=== PATIENT | male | born 1980 | race Caucasian/White ===

== ENCOUNTER 2018-06-04 15:28 | Inpatient (IN) | payer SELFPAY ==
[~2018-06-04] VITALS: Ht 165.1 cm; Wt 62.6 kg
[2018-06-04 00:30] VITALS: BP 122/64
[2018-06-04] MEDS ORDERED: SODIUM CHLORIDE 0.9% 1,000 ML IV ONE (16:13)
[2018-06-04 16:41] LABS: BASOPHILS % 0.5 % (0.0-2.0); EOSINOPHILS % 0.2 % (0.0-5.0); HEMATOCRIT. 42.7 % (42.0-52.0); HEMOGLOBIN. 14.6 g/dL (14.0-18.0); LYMPHOCYTES % 22.5 % (20.0-50.0); MEAN CORPUSCULAR HEMOGLOBIN 26.5 pg (28.0-32.0); MEAN CORPUSCULAR VOLUME 77.6 fL (80.0-94.0); MEAN PLATELET VOLUME 9.2 fl (7.4-10.4); MONOCYTES % 14.6 % (2.0-8.0); NEUTROPHILS % 62.2 % (40.0-76.0); PLATELET 102 x1000/uL (130-400); RED BLOOD CELL COUNT 5.51 mill/uL (4.7-6.1); RED CELL DISTRIBUTION WIDTH 14.2 % (11.6-14.6)
[2018-06-04 16:43] LABS: CHLORIDE 71 mEq/L (98-107)
[2018-06-04 17:14] LABS: ETHANOL BLOOD 446 mg/dL
[2018-06-04] MEDS ORDERED: POTASSIUM CHLORIDE 20MEQ TABLET SR PO ONE (17:45)
[2018-06-04] MEDS ORDERED: KCL 20MEQ/100ML PREMIX 100 ML IV ONE (17:45)
[2018-06-04] MEDS ORDERED: ONDANSETRON HCL 4MG/2ML INJ IV ONE ×2 (18:00→21:00)
[2018-06-04] MEDS ORDERED: METOCLOPRAMIDE HCL 10MG/2ML VIAL IV ONE (21:15)
[2018-06-04] MEDS ORDERED: MAGNESIUM/ALUMINUM HYDROXIDE/SIMETHICONE 30ML UDC PO PRN (22:30)
[2018-06-04] MEDS ORDERED: IPRATROPIUM/ALBUTEROL 0.5-3(2.5)MG/3ML NEB INH PRN (22:30)
[2018-06-04] MEDS ORDERED: CLONIDINE 0.1MG TABLET PO PRN (22:30)
[2018-06-04] MEDS ORDERED: ONDANSETRON HCL 4MG/2ML INJ IV PRN (22:30)
[2018-06-04] MEDS ORDERED: HYDROCODONE/ACETAMINOPHEN 5/325MG TABLET PO PRN (22:30)
[2018-06-04] MEDS ORDERED: GUAIFENESIN 200MG/10ML SUGAR FREE UDC PO PRN (22:30)
[2018-06-04] MEDS ORDERED: DOCUSATE SODIUM 100MG CAPSULE PO PRN (22:30)
[2018-06-04] MEDS ORDERED: LORAZEPAM 2MG/ML CPJ IV PRN (22:30)
[2018-06-04 23:12] LABS: HEPATITIS B SURFACE ANTIGEN NEGATIVE
[2018-06-04 23:42] LABS: HEPATITIS A AB IGM NEGATIVE (NEGATIVE)
[2018-06-05 00:30] VITALS: BP 122/64
[2018-06-05] MEDS ORDERED: MVI, ADULT NO.1 10 ML, FOLIC ACID 1 MG, THIAMINE HCL 100 MG in SODIUM CHLORIDE 0.9% 1,0... IV SCH ×4 (01:00)
[2018-06-05] MEDS: SODIUM CHLORIDE 0.9% 1,000 ML IV SCH ×2 (02:39→15:08)
[2018-06-05 04:00] VITALS: BP 109/68
[2018-06-05] MEDS: CHLORDIAZEPOXIDE 25MG CAPSULE PO SCH ×3 (05:24→21:48)
[2018-06-05 06:41] LABS: BASOPHILS % 0.8 % (0.0-2.0); EOSINOPHILS % 2.3 % (0.0-5.0); HEMATOCRIT. 34.4 % (42.0-52.0); HEMOGLOBIN. 11.6 g/dL (14.0-18.0); LYMPHOCYTES % 18.2 % (20.0-50.0); MEAN CORPUSCULAR HEMOGLOBIN 26.3 pg (28.0-32.0); MEAN CORPUSCULAR VOLUME 78.1 fL (80.0-94.0); MEAN PLATELET VOLUME 9.7 fl (7.4-10.4); MONOCYTES % 12.7 % (2.0-8.0); PLATELET 87 x1000/uL (130-400); RED BLOOD CELL COUNT 4.41 mill/uL (4.7-6.1); RED CELL DISTRIBUTION WIDTH 14.5 % (11.6-14.6)
[2018-06-05 08:00] VITALS: BP 116/61
[2018-06-05 09:17] LABS: CHLORIDE 85 mEq/L (98-107)
[2018-06-05 09:25] LABS: LDL CHOLESTEROL 79 mg/dL (5-100)
[2018-06-05 09:26] LABS: CREATINE KINASE MB FRACTION 9.1 ng/mL (0.5-3.6)
[2018-06-05 09:27] LABS: HDL CHOLESTEROL 65 mg/dL (40-59)
[2018-06-05 09:38] LABS: CREATINE KINASE 1706 IU/L (39-308)
[2018-06-05] MEDS: ACETAMINOPHEN 325MG TABLET PO PRN ×2 (10:08→19:48)
[2018-06-05 12:00] VITALS: BP 117/75
[2018-06-05] MEDS ORDERED: POTASSIUM CHLORIDE INJ 40 MEQ in DEXT 5% WATER 250 ML IV NR (12:00)
[2018-06-05 16:00] VITALS: BP 123/59
[2018-06-05 17:22] LABS: PROTHROMBIN TIME 10.5 sec (9.6-11.0)
[2018-06-05 17:37] LABS: CREATINE KINASE MB FRACTION 6.4 ng/mL (0.5-3.6)
[2018-06-05 17:46] LABS: TOTAL IRON BINDING CAPACITY 189 ug/dL (250-450)
[2018-06-05 17:50] LABS: FOLIC ACID (FOLATE) SERUM >20 ng/mL ng/mL (>5.38)
[2018-06-05 17:59] LABS: FERRITIN 675 ng/mL (22-322)
[2018-06-05 18:01] LABS: VITAMIN B12 SERUM >2000 pg/mL pg/mL (211-911)
[2018-06-05 19:42] VITALS: BP 144/77
[2018-06-05 20:34] LABS: CLARITY URINE CLEAR (CLEAR); COLOR URINE YELLOW (YELLOW); KETONES URINE NEGATIVE (NEGATIVE); LEUKOCYTE ESTERASE URINE NEGATIVE (NEGATIVE); NITRITE URINE NEGATIVE (NEGATIVE); OCCULT BLOOD URINE NEGATIVE (NEGATIVE); PH URINE 7.5 (4.5-8.0); PROTEIN URINE NEGATIVE (NEGATIVE); SPECIFIC GRAVITY URINE 1.005 (1.005-1.030); UROBILINOGEN URINE >=8.0 E.U./dL (0.2-1.0)
[2018-06-05 20:45] LABS: SODIUM URINE RANDOM 28 mEq/L
[2018-06-05 20:50] LABS: *AMPHETAMINES SCREEN URINE NEGATIVE (NEGATIVE); *BARBITURATES SCREEN URINE NEGATIVE (NEGATIVE); *BENZODIAZEPINES SCREEN URINE NEGATIVE (NEGATIVE); *COCAINE SCREEN URINE NEGATIVE (NEGATIVE)
[2018-06-05 20:51] LABS: CANNABINOID URINE SCREEN NEGATIVE (NEGATIVE); METHADONE URINE SCREEN NEGATIVE (NEGATIVE); OPIATES URINE SCREEN NEGATIVE (NEGATIVE); PHENCYCLIDINE URINE SCREEN NEGATIVE (NEGATIVE)
[2018-06-05] MEDS ORDERED: POTASSIUM CHLORIDE 20MEQ TABLET SR PO NR (21:00)
[2018-06-06] VITALS: BP 102/59
[2018-06-06] MEDS: ACETAMINOPHEN 325MG TABLET PO PRN (01:55)
[2018-06-06] MEDS: SODIUM CHLORIDE 0.9% 1,000 ML IV SCH ×2 (03:53→17:40)
[2018-06-06 04:01] VITALS: BP 106/70
[2018-06-06] MEDS: CHLORDIAZEPOXIDE 25MG CAPSULE PO SCH ×3 (06:14→21:30)
[2018-06-06 06:15] LABS: HIV SCREEN 4G Non Reactive (Non Reactive)
[2018-06-06 07:16] LABS: BASOPHILS % 0.9 % (0.0-2.0); EOSINOPHILS % 9.1 % (0.0-5.0); HEMATOCRIT. 37.6 % (42.0-52.0); HEMOGLOBIN. 12.4 g/dL (14.0-18.0); LYMPHOCYTES % 19.5 % (20.0-50.0); MEAN CORPUSCULAR HEMOGLOBIN 26.6 pg (28.0-32.0); MEAN CORPUSCULAR VOLUME 80.2 fL (80.0-94.0); MEAN PLATELET VOLUME 9.7 fl (7.4-10.4); MONOCYTES % 13.5 % (2.0-8.0); PLATELET 141 x1000/uL (130-400); RED BLOOD CELL COUNT 4.68 mill/uL (4.7-6.1); RED CELL DISTRIBUTION WIDTH 14.6 % (11.6-14.6)
[2018-06-06 07:28] LABS: CHLORIDE 100 mEq/L (98-107)
[2018-06-06 07:49] LABS: CREATINE KINASE 568 IU/L (39-308); PHOSPHORUS 2.9 mg/dL (2.5-4.9)
[2018-06-06 08:00] VITALS: BP 105/70
[2018-06-06] MEDS: MULTIVITAMINS,THER W-MINERALS TABLET PO SCH (08:54)
[2018-06-06] MEDS: FOLIC ACID 1MG TABLET PO SCH (08:54)
[2018-06-06] MEDS: THIAMINE HCL 100MG TABLET PO SCH (08:54)
[2018-06-06] MEDS: POTASSIUM CHLORIDE 20MEQ TABLET SR PO SCH ×2 (08:55→21:22)
[2018-06-06 12:00] VITALS: BP 128/81
[2018-06-06 16:20] VITALS: BP 118/82
[2018-06-06 20:00] VITALS: BP 115/81
[2018-06-07] VITALS: BP 108/72
[2018-06-07 04:00] VITALS: BP 114/75
[2018-06-07] MEDS: CHLORDIAZEPOXIDE 25MG CAPSULE PO SCH ×2 (05:11→05:18)
[2018-06-07 06:26] LABS: CHLORIDE 106 mEq/L (98-107)
[2018-06-07 06:32] LABS: HEMATOCRIT. 38.1 % (42.0-52.0); HEMOGLOBIN. 12.5 g/dL (14.0-18.0); MEAN CORPUSCULAR HEMOGLOBIN 26.9 pg (28.0-32.0); MEAN CORPUSCULAR VOLUME 81.8 fL (80.0-94.0); MEAN PLATELET VOLUME 9.8 fl (7.4-10.4); PLATELET 212 x1000/uL (130-400); RED BLOOD CELL COUNT 4.66 mill/uL (4.7-6.1)
[2018-06-07 06:52] LABS: PHOSPHORUS 2.6 mg/dL (2.5-4.9)
[2018-06-07 08:00] VITALS: BP 106/67
[2018-06-07] MEDS: FOLIC ACID 1MG TABLET PO SCH (08:12)
[2018-06-07] MEDS: MULTIVITAMINS,THER W-MINERALS TABLET PO SCH (08:12)
[2018-06-07] MEDS: POTASSIUM CHLORIDE 20MEQ TABLET SR PO SCH ×2 (08:12→09:00)
[2018-06-07] MEDS: THIAMINE HCL 100MG TABLET PO SCH (08:12)
[2018-06-07] MEDS ORDERED: DIPHENHYDRAMINE 50MG/ML VIAL IV PRN (08:45)
[2018-06-07 10:09] LABS: PLATELET ESTIMATE NORMAL
[2018-06-07 11:54] VITALS: BP 118/77
[2018-06-07 13:25] VITALS: BP 118/77
[2018-06-08] MEDS ORDERED: POTASSIUM CHLORIDE 20MEQ TABLET SR PO SCH (09:00)
== END 2018-06-07 15:35 | disposition home or self-care (01) | DRG 282 ==
LOC: EDBD 15:28 → ER 15:28 → ENRESERV 22:54 → 8WST 06-05 00:14
PROVIDERS: ADMIT Internal Medicine; ATTEND Internal Medicine
DX: K85.90 Acute pancreatitis without necrosis or infection, unspecified (principal); G92 Toxic encephalopathy; E87.3 Alkalosis; D69.6 Thrombocytopenia, unspecified; E44.0 Moderate protein-calorie malnutrition; I45.81 Long QT syndrome; E87.8 Other disorders of electrolyte and fluid balance, not elsewhere classified; E87.1 Hypo-osmolality and hyponatremia; M62.82 Rhabdomyolysis; K70.10 Alcoholic hepatitis without ascites; E86.0 Dehydration; D50.9 Iron deficiency anemia, unspecified; E87.6 Hypokalemia; D63.8 Anemia in other chronic diseases classified elsewhere; D72.821 Monocytosis (symptomatic); F17.210 Nicotine dependence, cigarettes, uncomplicated; I10 Essential (primary) hypertension; K76.0 Fatty (change of) liver, not elsewhere classified; Y90.8 Blood alcohol level of 240 mg/100 ml or more; Z82.49 Family history of ischemic heart disease and other diseases of the circulatory system; F10.239 Alcohol dependence with withdrawal, unspecified; Z68.23 Body mass index [BMI] 23.0-23.9, adult
CPT/HCPCS: 36415; 71045; 76700; 80048; 80061; 80305; 80320; 82248; 82270; 82533; 82550; 82553; 82607; 82728; 82746; 83036; 83540; 83550; 83735; 83935; 84100; 84300; 84443; 84484; 86705; 86709; 86803; 87340; 87389; 87493; 93005; 93306; 93970; 96374; 99285; J1200; J2405; J2765; J3411; J3480; J3490; J7030; J7050; J7060; G0480